=== PATIENT | male | born 1985 | race Caucasian/White ===

== ENCOUNTER 2018-02-01 07:44 | Outpatient (CLI) | payer OTHER ==
--- NOTE | 2018-02-01 13:53 | MRI Report ---
Reason: PAIN IN LEFT SHOULDER Procedure Date: 02/01/2018 Accession Number: [id number] / [id number] Procedure: MRI - Shoulder LT W/O CPT Code: FULL RESULT: EXAM: LEFT SHOULDER MRI WITHOUT CONTRAST EXAM DATE: 02/01/2018 08:41 AM. CLINICAL HISTORY: Pain in left shoulder. COMPARISON: None. TECHNIQUE: Multiplanar, multisequence T1-weighted and fluid-sensitive sequences of the shoulder without contrast. Other: None. FINDINGS: Acromioclavicular Region: The acromion is type II. Edema distal clavicle at the acromioclavicular joint. The coracoacromial and coracoclavicular ligaments are intact. Small subacromial/Subdeltoid bursa fluid collection. Glenohumeral Region: No subluxation. No effusion or loose bodies. Moderate chondromalacia inferior glenohumeral joint. The glenohumeral ligaments and joint capsule are unremarkable. Bone Marrow: Cortical irregularity posterior aspect greater tuberosity at the infraspinatus tendon insertion. Labrum: Probable posterior mid glenoid labrum nondisplaced tear (image 17 series 401). Probable anterior superior sublabral foramen. Probable mid anterior labrum tear (image 15 series 401). Musculature/Rotator Cuff: Possible linear 1 cm in length mid subscapularis tear distal subscapularis tendon. Possible pinhole tear anterior aspect distal infraspinatus tendon (image 7 series 701 on image 14 series 501). Negative for supraspinatus tendon tear. The rotator cuff muscles are without atrophy or edema. Mild surface irregularity bursal surface supraspinatus tendon. Biceps Tendon: Small linear fluid signal partial tear posterior aspect infraspinatus musculotendinous junction. The long head of the biceps tendon and biceps dannielle are intact. Other: The subcutaneous tissues are unremarkable. IMPRESSION: 1. Negative for complete rotator cuff tear. 2. Possible focal pinhole tear anterior aspect infraspinatus tendon and there is likely a small linear interstitial tear fluid signal at the posterior aspect infraspinatus musculotendinous junction. 3. Edema distal clavicle at the acromioclavicular joint. 4. Probable tears at the mid anterior glenoid labrum and the mid posterior glenoid labrum. [facility] MUSCULOSKELETAL RADIOLOGY SECTION
== END 2018-02-01 07:45 | disposition home or self-care (01) ==
LOC: DI 07:44
PROVIDERS: ATTEND General Practice
DX: M25.512 Pain in left shoulder (principal)